=== PATIENT | female | born 1945 | race Caucasian/White ===

== ENCOUNTER 2017-03-14 11:46 | Inpatient (IN) ==
[2017-03-14] MEDS ORDERED: MORPHINE 2 MG/1 ML SYRINGE IV PRN (13:50)
[2017-03-14] MEDS ORDERED: ACETAMINOPHEN 325 MG TABLET PO PRN ×2 (13:50→15:55)
[2017-03-14] MEDS ORDERED: DOCUSATE SODIUM 100 MG CAPSULE PO PRN (13:50)
[2017-03-14] MEDS ORDERED: ONDANSETRON 4 MG/2 ML VIAL IV PRN (13:50)
[2017-03-14] MEDS ORDERED: LACTULOSE 20 GM/30 ML UDCUP PO PRN (13:50)
[2017-03-14] MEDS ORDERED: SODIUM CHLORIDE 0.9% 1,000 ML IV SCH (14:00)
[2017-03-14 14:35] LABS: Basophils # 0.1 10*3/uL (0.0-0.2); Basophils % 0.4 % (0.0-0.8); Eosinophils % 0.3 % (0.00-10.9); Hematocrit 38.6 VOL% (35.7-47.0); Hemoglobin 12.5 GM/DL (12.0-16.0); Immature Granulocytes % 0.3 %; Immature Granulocytes Absolute 0.04 #; Lymphocytes # 1.5 10*3/uL (1.4-4.0); Mean Corpuscular HGB Conc 32.4 GM/DL (32-36); Mean Corpuscular Hemoglobin 31 PG (27-34); Mean Corpuscular Volume 95.1 FL (87-102); Mean Platelet Volume 9.1 FL (9.6-12.0); Monocytes % 8.3 % (1.7-12.7); Neutrophils # 9.2 10*3/uL (1.4-7.4); Neutrophils % 77.7 % (38.7-73.9); Platelet Count 216 T/CUMM (130-400); Red Blood Count 4.06 MC/CUMM (3.8-5.5); Red Cell Distribution Width 14.2 % (9.3-17.3); White Blood Count 11.8 T/CUMM (4-12)
--- NOTE | 2017-03-14 14:50 | Hospitalist History & Physical ---
<Modesto Degroot - Last Filed: 03/14/17 14:37> Assessment and Plan - Time spent with patient Time spent with patient: Greater than 30 minutes (1) Recurrent epistaxis Status: Acute Assessment and plan: Seen by Dr. Shetty. Right nostril packed with drainage into left nostril. Continue symptomatic treatment. Avoid anticoagulation. Check H&H and PT/PTT. IV fluids for associated dehydration and weakness. Current Visit: No (2) Hypertension Status: Acute Assessment and plan: Continue home meds. Current Visit: Yes (3) COPD (chronic obstructive pulmonary disease) Status: Acute Assessment and plan: Patient has expiratory wheezing and rhonchi. Duonebs. Current Visit: Yes History of Present Illness Chief complaint: Dehydration/Weakness/Epistaxis History of present illness: Ms. Nixon is a 71 year old female with a history significant for hypertension, COPD, CAD with stent placement and history of TIAs who presented as a direct admit from Dr. Shetty's ENT office for further evaluation of epistaxis with associated dehydration and weakness. The patient states that the nosebleeds began Monday night and have been unrelenting for the past 3 days. She was seen at the [facility] ED before being transferred to [facility] on Monday. There she was seen by Dr. Govea, her nose was packed, and she was sent home. She returned to Dr. Shetty's office this morning with continued bleeding from the right nostril. Dr. Shetty packed the bleed again, but she continues to drain around the packing and out of the left nostril. The patient continues to complain of weakness, dehydration and decreased appetite stating she "too much has been going on to feel hungry". She denies blurry vision, headache, chest pain, SOB, pain with inspiration, abdominal pain. She does complain of feeling faint, which is likely related to gross blood loss. Patient does take ASA 81 mg daily which was stopped in Dr. Shetty's office today. She will be admitted to the hospital medicine service for evaluation. We will obtain labs included CBC w/ diff and PT/PTT and continue management of chronic conditions. We have consulted Dr. Shetty to follow along for epistaxis. Home Medications Medication Instructions Recorded Confirmed Type Albuterol Neb [Proventil Neb] 2.5 mg RESP TX Q6HR 03/12/17 03/12/17 History Albuterol Sulfate [Proair HFA] 2 puff INH Q4H PRN 03/12/17 03/12/17 History Aspirin EC Tab 325 mg PO QAM 03/12/17 03/12/17 History Atenolol 25 mg PO QAM 03/12/17 03/12/17 History Ciprofloxacin Tab [Cipro Tab] 500 mg PO Q12HR #20 tablet 03/12/17 Rx Ezetimibe/Simvastatin [Vytorin 1 each PO QAM 03/12/17 03/12/17 History 10-40 mg Tablet] Fluticasone 50 Mcg Nasal [place] 1 spray BOTH NARES QAM 03/12/17 03/12/17 History [Flonase Nasal [place]] Sertraline [Zoloft] 100 mg PO BEDTIME 03/12/17 03/12/17 History amLODIPine [Norvasc] 10 mg PO BID 03/12/17 03/12/17 History predniSONE TAB [PredniSONE] 20 mg PO DAILY #15 tablet 03/12/17 Rx Allergies Allergy/AdvReac Type Severity Reaction Status Date / Time No Known Allergies Allergy Unverified 03/13/17 04:45 Medical,Surgical,& Family Hx - Medical History Cardio: History of: Hypertension Respiratory: History of: COPD Musculoskeletal: History of: Back/Neck Problems Hematology: History of: Bleeding Problems (frequest nosebleeds) - Surgical History Cardiac Surgeries: Sugical HX of: Cardiac Catheterization (stent x 1) - Social History Smoking Status: Current every day smoker Frequency of Alcohol Use: Frequently (1-2 beers/wine a few days a week) Type of Drug Use: None Marital Status: Lives With:: Spouse Functional capacity: independent ambulation - Constitutional Constitutional: Present: weakness. Absent: fatigue, fever(s), headache(s) - EENT Nose, mouth and throat: Present: epistaxis, nasal congestion, sinus pressure. Absent: headache(s) - Cardiovascular Cardiovascular: Present: lightheadedness. Absent: chest pain at rest, diaphoresis, dyspnea, edema - Respiratory Respiratory: Present: wheezing, snoring. Absent: dyspnea, hemoptysis - Gastrointestinal Gastrointestinal: Absent: abdominal pain, constipation, nausea, vomiting - Genitourinary Genitourinary: Absent: difficulty urinating, flank pain, hematuria - Musculoskeletal Musculoskeletal: Present: arthralgias, back pain - Neurological Neurological: Absent: abnormal gait, abnormal speech - Psychiatric Psychiatric: Absent: anxiety, depression - Endocrine Endocrine: Absent: cold intolerance, fatigue, heat intolerance - Hematologic/Lymphatic Hematologic/Lymphatic: Present: easy bleeding, easy bruising Exam - Constitutional Exam: General appearance: normal weight, no acute distress - Head Head exam: Present: normocephalic, atraumatic - Eye Eye exam: Present: EOMI. Absent: conjunctival injection, nystagmus Pupils: Present: TRAN, normal accommodation - ENT ENT exam: Present: normal exam, normal external ear exam, epistaxis, packing in right nostril, sanguinous drainage from left nostril - Neck Neck exam: Present: normal inspection. Absent: lymphadenopathy, tenderness, thyromegaly - Respiratory Respiratory exam: Present: expiratory wheezing, rhonchi. Absent: rales - Cardiovascular Cardiovascular exam: Present: regular rate and rhythm. Absent: carotid bruit, gallop, rubs - GI/Abdominal GI/Abdominal exam: Present: normal bowel sounds. Absent: ascites, distended, mass - Extremities Exam Extremities exam: Present: normal inspection, normal capillary refill. Absent: edema - Back Exam Back exam: Absent: CVA tenderness (L), CVA tenderness (R) - Neurological Exam Neurological exam: Present: alert, oriented X3 - Psychiatric Psychiatric exam: Present: normal affect, normal mood - Skin Skin exam: Present: several areas of ecchymosis along both arms, warm, dry Results - Labs CBC & BMP: 03/14/17 14:22 Lab Results: I have reviewed the past 24 hour labs <Deepak Heller - Last Filed: 03/14/17 15:15> History of Present Illness History of present illness: Ms. Nixon is a 71 year old female who sustained Monday morning her initial episode of epistaxis. The patient apparently in September had an infected tooth on the right side and underwent several dental extractions. She was told that she had a right sided sinusitis on imaging studies done at that time. She noted Monday bleeding from the right nostril with a blood both anteriorly and posteriorly draining depending on body positioning. This continued she presented to her local hospital and was transferred on the here where she was seen by ENT she had a CT scan of her sinuses performed which showed minimal opacification of the right maxillary sinus. Subsequent endoscopic imaging demonstrated a small amount of bleeding from the right middle turbinate the patient received local treatment and was advised to discontinue aspirin. 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 Bleeding was once again controlled but recurred and she was seen in the ENTs office earlier today and referred for admission. She did receive treatment prior to being referred for admission and the in the ENTs office and she believes that most of the expectorated blood at this time represents old material and is not the brisk bleeding that she had had on several occasions previous. The patient is a minimal cigarette smoker, she is treated with as needed medications for "COPD", and in 2003 had a percutaneous intervention performed to the right coronary artery she has recently had an echocardiogram performed this an outpatient with normal findings. She does consume beer and wine perhaps 6 drinks per week she denies the use of hard liquor or tonic. She has had several surgical procedures in the past without bleeding and did not bleed with her recent dental work. Results - Labs CBC & BMP: 03/14/17 14:22
[2017-03-14 15:09] LABS: Calcium 9.2 MG/DL (8.5-10.1); Potassium 4.2 MMOL/L (3.5-5.1); Risk Ratio 3.13; Thyroid Stimulating Hormone 1.19 uIU/ml (0.358-3.74)
[2017-03-14 15:27] LABS: INR 1.1; Partial Thromboplastin Time 29.2 SECS (0-40)
[2017-03-14] MEDS ORDERED: CEFUROXIME INJ 750 MG in SODIUM CHLORIDE 0.9% 100 ML IV SCH (16:00)
[2017-03-14] MEDS: CIPROFLOXACIN 500 MG TABLET PO SCH (20:50)
[2017-03-14] MEDS: amLODIPine 10 MG TABLET PO SCH (20:50)
[2017-03-14] MEDS: SERTRALINE 100 MG TABLET PO SCH (20:50)
[2017-03-14] MEDS: ZALEPLON 5 MG CAPSULE PO PRN (20:50)
[2017-03-14] MEDS: ALBUTEROL/IPRATROPIUM 3 ML NEB RESP TX PRN (21:00)
[2017-03-14 22:36] LABS: Apearance,Urine CLEAR (Clear); Bilirubin,Urine Negative (Negative); Blood, Urine Negative (Negative); Glucose,Urine (UA) Negative (Negative); Ketones,Urine Negative (Negative); Mucus,Urine Occasional /LPF (Occasional); Nitrite,Urine Negative (Negative); Protein,Urine Negative; RBC,Urine <1 /HPF (0-4); Squamous Epithelial Cell,Urine Occasional /HPF (0-10); Urine Color Yellow (Yellow); Urine Specific Gravity 1.009 (1.001-1.035); Urine Urobilinogen < 2.0 EU/DL (0.2-1.0); WBC,Urine <1 /HPF (0-6)
[2017-03-15 04:36] LABS: Calcium 8.9 MG/DL (8.5-10.1); Potassium 3.7 MMOL/L (3.5-5.1)
--- NOTE | 2017-03-15 07:39 | Hospitalist Progress Note ---
Assessment and Plan (1) Recurrent epistaxis Status: Acute Assessment and plan: It appears as though the volume of bleeding has diminished substantially by the patient's report. Final ENT disposition is pending. Current Visit: No Hospitalist: Subjective Interval history: 71-year-old female who had the onset of epistaxis Monday. In September she had a bad sinus infection which was associated with dental problems which led to extraction. With this and throughout her life she has had no problems with bleeding or bleeding disorders. The bleeding apparently was rather brisk and she presented to the emergency room CT scan demonstrated some residual changes in the right maxillary sinus. She was seen by ENT endoscopic imaging demonstrated a small amount of bleeding from the right middle turbinate. She received local treatment nasal packing. Bleeding recurred and she was seen in the office of her primary physician and referred for repeat ENT evaluation. Bleeding persisted and she was hospitalized. He has continued to have some bloody drainage from her nose but volume is been substantially less than she is described previously. Her hemoglobin level is stayed stable over several determination. Vital signs are stable overnight Exam - Constitutional Vitals: Period Temp Pulse Resp BP Sys/Jauregui Pulse Ox Last 24 Hr 96.8 F-97.9 F 67-78 16-20 118-142/62-75 90-97 General appearance: normal weight - Respiratory Respiratory exam: Present: clear to auscultation bilaterally. Absent: rales, rhonchi, wheezes - Cardiovascular Cardiovascular exam: Present: regular rate and rhythm - GI/Abdominal GI/Abdominal exam: Present: normal bowel sounds - Extremities Exam Extremities exam: Absent: edema - Neurological Exam Neurological exam: Present: alert, oriented X3 Results - Labs CBC & BMP: 03/15/17 03:53 03/15/17 03:53
[2017-03-15] MEDS: predniSONE 20 MG TABLET PO SCH (09:17)
[2017-03-15] MEDS: amLODIPine 10 MG TABLET PO SCH ×2 (09:17→21:17)
[2017-03-15] MEDS: PANTOPRAZOLE 40 MG TABLET PO SCH (09:18)
[2017-03-15] MEDS: CIPROFLOXACIN 500 MG TABLET PO SCH ×2 (09:18→21:17)
[2017-03-15] MEDS: EZETIMIBE/SIMVASTATIN 10-40 MG TABLET PO SCH (09:25)
[2017-03-15] MEDS: ATENOLOL 25 MG TABLET PO SCH (09:25)
[2017-03-15] MEDS: ALBUTEROL/IPRATROPIUM 3 ML NEB RESP TX PRN (11:17)
--- NOTE | 2017-03-15 14:06 | Consultation ---
Assessment and Plan - Time spent with patient Time spent with patient: Less than 30 minutes (1) Recurrent epistaxis Status: Acute Assessment and plan: I recommend to keep the Merisel pack in place and she is tolerating it well and has had no recurrent epistaxis overall the patient seems to be improving quite well today and I would expect that she could go home tomorrow and follow up with me in the office next week for removal of the Merisel pack I do recommend that she stay on antibiotic treatment while there is a pack in place. Thank you very much for your help with this patient I will continue to follow this patient Current Visit: No (2) Dehydration Status: Acute Assessment and plan: Appears resolved or improved today Current Visit: Yes (3) Anticoagulated Status: Acute Current Visit: Yes (4) Hypertension Status: Acute Current Visit: Yes History of Present Illness - Data of Consult Patient: known to practice within the last 3 years Consult date: 03/15/17 - Consult Narrative Reason for consult: Epistaxis anticoagulation History of present illness: Ms. 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 She is also tolerating this pack better than the previous she states. CC: Deepak Heller MD - Home Medications and Allergies Home Medications: Home Medications Medication Instructions Recorded Confirmed Type Albuterol Neb [Proventil Neb] 2.5 mg RESP TX Q6HR 03/12/17 03/14/17 History Albuterol Sulfate [Proair HFA] 2 puff INH Q4H PRN 03/12/17 03/14/17 History Aspirin EC Tab 325 mg PO QAM 03/12/17 03/14/17 History Atenolol 25 mg PO QAM 03/12/17 03/14/17 History Ezetimibe/Simvastatin [Vytorin 1 each PO QAM 03/12/17 03/14/17 History 10-40 mg Tablet] Fluticasone 50 Mcg Nasal [place] 1 spray BOTH NARES QAM 03/12/17 03/14/17 History [Flonase Nasal [place]] Sertraline [Zoloft] 100 mg PO BEDTIME 03/12/17 03/14/17 History amLODIPine [Norvasc] 10 mg PO BID 03/12/17 03/14/17 History Allergies/Adverse Reactions: Allergies Allergy/AdvReac Type Severity Reaction Status Date / Time No Known Allergies Allergy Unverified 03/13/17 04:45 12 point system: reviewed and no additional remarkable complaints except as stated Medical,Surgical,& Family Hx - Medical History Cardio: History of: Hypertension Neurology: History of: Cerebrovascular Accident HEENT: History of: Eye Problem (glasses), Dental Problems (bridge) Respiratory: History of: COPD Genitourinary: History of: Kidney Stones Musculoskeletal: History of: Back/Neck Problems Hematology: History of: Bleeding Problems (frequest nosebleeds) - Surgical History Cardiac Surgeries: Sugical HX of: Cardiac Catheterization (stent x 1) Abdominal Surgeries: Surgical HX of: Appendectomy Reproductive Surgeries: Surgical HX of;: Section (X3), Gynecologic Surgery (Oophrectomy) Orthopedic Surgeries: Surgical HX of;: Spinal Surgery (back X2; neck X1) - Family History Family History: Reports;: Family Diabetes, Family Heart Disease, Family Hypertension, Family Stroke - Social History Smoking Status: Current every day smoker Frequency of Alcohol Use: Frequently (1-2 beers/wine a few days a week) Type of Drug Use: None Exam - Constitutional Vitals: Period Temp Pulse Resp BP Sys/Jauregui Pulse Ox Last 24 Hr 97.5 F-97.9 F 62-81 16-20 116-142/57-75 90-97 General appearance: normal weight, no acute distress - Head Head exam: Present: normal inspection, normocephalic - Eye Eye exam: Present: EOMI Pupils: Present: TRAN - ENT ENT exam: Present: normal exam, normal external ear exam, normal oropharynx, other (Right sided Merisel pack in place no recurrent epistaxis) - Neck Neck exam: Present: normal inspection - Respiratory Respiratory exam: Present: other (No shortness of breath or difficulty breathing ) - GI/Abdominal GI/Abdominal exam: Present: soft (She does state some mild nausea) - Extremities Exam Extremities exam: Present: normal inspection (Improvement/possible resolution of dehydration) - Back Exam Back exam: Present: normal inspection - Neurological Exam Neurological exam: Present: alert, oriented X3, CN II-XII intact - Psychiatric Psychiatric exam: Present: normal affect, normal mood - Skin Skin exam: Present: normal color, warm Results - Labs CBC & BMP: 03/15/17 03:53 03/15/17 03:53 Lab Results: I have reviewed the past 24 hour labs (Stable hemoglobin)
[2017-03-15] MEDS: SERTRALINE 100 MG TABLET PO SCH (21:17)
[2017-03-15] MEDS: ZALEPLON 5 MG CAPSULE PO PRN (21:20)
--- NOTE | 2017-03-16 08:33 | Discharge Summary ---
Hospital Course - Hospital Course Hospital Course: 71-year-old female with the onset of epistaxis 2 days prior to admission she had some dental work done in September with a sinusitis at that time. Bleeding initially was rather briskly presented the emergency room was seen by ENT at that time with an endoscopic evaluation packing performed in apparent control of bleeding upon return home bleeding recurred. She was seen by her primary physician referred back to ENT and then admitted to the hospital for continued bleeding. With superficial intervention the patient's bleeding was controlled. Hemoglobin remained stable through the hospital stay laboratory work was unremarkable. The patient had no prior history of bleeding problems. She is to be discharged today for follow-up early next week with ENT. She will continue to hold her aspirin. Diagnosis - Discharge Diagnosis (1) Recurrent epistaxis Status: Acute Specialty Discharge - Follow Up or Referrals Follow up with: Anam Shetty DO [Physician] - Discharge Plan - Discharge Data Disposition: Disch To Home/Self Care Condition at Discharge: Stable Discharge Diet: advance to your usual diet Activity: resume usual activities as tolerated - Discharge Medications Continue amLODIPine [Norvasc] 10 mg PO BID Atenolol 25 mg PO QAM Ezetimibe/Simvastatin [Vytorin 10-40 mg Tablet] 1 each PO QAM Fluticasone 50 Mcg Nasal [place] [Flonase Nasal [place]] 1 spray BOTH NARES QAM Albuterol Neb [Proventil Neb] 2.5 mg RESP TX Q6HR Albuterol Sulfate [Proair HFA] 2 puff INH Q4H PRN PRN Reason: Shortness Of Breath/Wheezing Sertraline [Zoloft] 100 mg PO BEDTIME Discontinued Aspirin EC Tab 325 mg PO QAM - Follow Up or Referral Follow Up: Anam Shetty DO [Physician] - - Forms/Instructions Exam - Constitutional Vitals: Period Temp Pulse Resp BP Sys/Jauregui Pulse Ox Last 24 Hr 97.1 F-97.8 F 61-81 16-18 109-139/53-71 91-93 DS: Provider Date of admission: 03/14/17 12:20 Primary care physician: . No PCP Attending physician on admission: Deepak Heller MD Consults: 03/14/17 13:50 Consult to Physician [CONS] Routine Comment: Epistaxis Consulting Provider: Anam Shetty Consulting Provider Notified: Yes When should Consulting Provider be notified: Now Person Notified: Alannah Malagon Date Notified: 03/14/17 Time Notified: 14:20 03/14/17 14:06 Consult to Pharmacy [CONS] Routine Reason for Pharmacy Consult: Adjust Meds Renal Funct Discharging clinician: Deepak Heller MD Expected date of discharge: 03/16/17
[2017-03-16] MEDS: CIPROFLOXACIN 500 MG TABLET PO SCH (09:14)
[2017-03-16] MEDS: PANTOPRAZOLE 40 MG TABLET PO SCH (09:14)
[2017-03-16] MEDS: predniSONE 20 MG TABLET PO SCH (09:14)
[2017-03-16] MEDS: amLODIPine 10 MG TABLET PO SCH (09:14)
[2017-03-16] MEDS: EZETIMIBE/SIMVASTATIN 10-40 MG TABLET PO SCH (09:15)
[2017-03-16] MEDS: ATENOLOL 25 MG TABLET PO SCH (09:15)
--- NOTE | 2017-03-16 11:53 | Progress Note ---
Assessment and Plan - Time spent with patient Time spent with patient: Less than 30 minutes (1) Recurrent epistaxis Status: Acute Assessment and plan: I recommend to keep the Merisel pack in place and she is tolerating it well and has had no recurrent epistaxis overall the patient seems to be improving quite well today and I would expect that she could go home tomorrow and follow up with me in the office next week for removal of the Merisel pack I do recommend that she stay on antibiotic treatment while there is a pack in place. Thank you very much for your help with this patient I will continue to follow this patient 03/16/2017 She is improving and I recommend no escalation of care I recommend she could be discharged home I recommend we keep the Merisel pack in place till next week and at that time I will remove that she needs to remain on her antibiotics until the pack is removed. I will sign off in this case there is any additional questions or concerns please contact me thank you very much for consulting me with this case Current Visit: No (2) Dehydration Status: Acute Assessment and plan: Appears resolved or improved today Current Visit: Yes (3) Anticoagulated Status: Acute Current Visit: Yes (4) Hypertension Status: Acute Current Visit: Yes Family Medicine PN Sub Interval history: Ms. Nixon continues to improve remarkably with rehydration and cessation of her epistaxis. She is feeling well enough and desires to go home and her epistaxis is controlled and I would agree with her discharge home and follow-up next week with me for removal of Merisel pack she is to continue to stay on antibiotics. Exam (Progress Note) - Constitutional Vitals: Period Temp Pulse Resp BP Sys/Jauregui Pulse Ox Last 24 Hr 97.1 F-97.7 F 61-70 16-18 109-139/53-71 92-93 General appearance: normal weight, no acute distress - Head Head exam: Present: normal inspection, normocephalic - Eye Eye exam: Present: EOMI Pupils: Present: TRAN - ENT ENT exam: Present: normal exam, normal external ear exam, normal oropharynx, other (Anterior rhinoscopy reveals no acute epistaxis with a right sided Merisel pack in place with no epistaxis) - Neck Neck exam: Present: normal inspection - Respiratory Respiratory exam: Present: other (No shortness of breath or tachypnea) - GI/Abdominal GI/Abdominal exam: Present: soft - Neurological Exam Neurological exam: Present: alert, oriented X3, CN II-XII intact - Psychiatric Psychiatric exam: Present: normal affect, normal mood - Skin Skin exam: Present: normal color, warm Results - Labs CBC & BMP: 03/15/17 03:53 03/15/17 03:53 Lab Results: I have reviewed the past 24 hour labs Specialty Discharge - Follow Up or Referrals Follow up with: Anam Shetty DO [Physician] - 03/20/17 1:00 pm
[2017-03-16 14:33] VITALS: BP 127/74
== END 2017-03-16 13:00 | disposition home or self-care (01) | DRG 151 ==
LOC: N.3E → OBSVTOIN 12:20
PROVIDERS: ADMIT Internal Medicine Cardiovascular Disease; ATTEND Internal Medicine Cardiovascular Disease